=== PATIENT | female | born 1965 | race Caucasian/White ===

== ENCOUNTER 2021-12-15 23:55 | Emergency (ER) | payer BC, OTHER ==
[~2021-12-15] VITALS: Ht 165.1 cm; Wt 79.4 kg
[~2021-12-15 23:55] MED LIST: AMBIEN PAK10 MG; SAPHRIS5 MG; Z.0.CLONAZEPAM1 MG PO; Z.0.CYMBALTA60 MG PO; Z.0.ENABLEX15 MG PO; Z.0.LAMICTAL200 MG PO; Z.0.PROZAC40 MG; Z.0.URIBEL CAPSULE1 PO; Z.0.VICODIN 5-5001 E; Z.0.XANAX2 MG; [UNRECOGNIZED DRUG - OTHER]
[2021-12-16] MEDS ORDERED: PREDNISONE 20 MG TAB PO ONE (00:30)
[2021-12-16] MEDS ORDERED: BENADRYL25 M1 PO (00:31)
[2021-12-16] MEDS ORDERED: EPIPEN JR0.15 MG/01 IM (00:31)
[2021-12-16] MEDS ORDERED: PEPCID20 MG PO (00:31)
[2021-12-16] MEDS ORDERED: MEDROL4 MG PO (00:31)
[2021-12-16] MEDS ORDERED: PREDNISONE 20 MG TAB ONE (00:33)
[2021-12-16] MEDS ORDERED: DIPHENHYDRAMINE HCL 25 MG CAP ONE (00:49)
== END 2021-12-16 01:25 | disposition home or self-care (01) ==
LOC: FSED 23:59
DX: T78.40XA Allergy, unspecified, initial encounter (principal); E11.40 Type 2 diabetes mellitus with diabetic neuropathy, unspecified; J44.9 Chronic obstructive pulmonary disease, unspecified; F41.9 Anxiety disorder, unspecified
CPT/HCPCS: 99283; J7512

== ENCOUNTER 2025-05-10 15:00 | Emergency (ER) | payer OTHER ==
[~2025-05-10 15:00] MED LIST changes: +BENADRYL25 M1 PO; +EPIPEN JR0.15 MG/01 IM; +FLUCONAZOLE150 MG PO; +LEVSIN-SL0.125 MG SL; +MEDROL4 MG PO; +PEPCID20 MG PO; +PHENAZOPYRIDIN200 MG PO
== END 2025-05-10 15:32 | disposition short-term general hospital (02) ==
LOC: FSED 15:10
DX: L02.828 Furuncle of other sites (principal)